=== PATIENT | female | born 1975 | race African-American/Black ===

== ENCOUNTER 2016-09-27 08:18 | Inpatient (IN) | payer BC ==
[2016-09-27 09:22] VITALS: BMI 23.6
--- NOTE | 2016-09-27 11:40 | HP ---
CIWA Score - CIWA Score Nausea/Vomitin-No Nausea/No Vomiting Muscle Tremors: 4-Moderate,w/Arms Extend Anxiety: 4-Mod. Anxious/Guarded Agitation: 4-Moderately Restless Paroxysmal Sweats: 3 Orientation: 0-Oriented Tacttile Disturbances: 0-None Auditory Disturbances: 0-None Visual Disturbances: 0-None Headache: 0-None Present CIWA-Ar Total Score: 15 Admission ROS BHS - HPI Chief Complaint: I need to stop drinking. Allergies/Adverse Reactions: Allergies Allergy/AdvReac Type Severity Reaction Status Date / Time No Known Allergies Allergy Verified 09/27/16 09:36 History of Present Illness: pt is a 40yr old female with a history of alcohol dependence seeking detox for treatment. Exam Limitations: No Limitations - Ebola screening Have you traveled outside of the country in the last 21 days: No Have you had contact with anyone from an Ebola affected area: No Have you been sick,other than usual withdrawal symptoms: No Do you have a fever: No - Review of Systems Constitutional: Chills, Diaphoresis, Loss of Appetite, Night Sweats, Changes in sleep, Unintentional Wgt. Loss EENT: reports: No Symptoms Reported Respiratory: reports: No Symptoms reported Cardiac: reports: Lightheadedness GI: reports: Nausea, Poor Appetite, Poor Fluid Intake : reports: No Symptoms Reported Musculoskeletal: reports: Back Pain, Joint Pain, Muscle Pain Integumentary: reports: Flushing, Sweating Endocrine: reports: Excessive Sweating, Flushing, Intolerance to Cold, Intolerance to Heat Hematology: reports: Anemia (iron deficiency anemia last IV infusion 04/2016. currently talking iron sulfate once daily) Psychiatric: reports: Judgement Intact, Orientated x3, Agitated, Anxious Patient History - Patient Medical History Hx Anemia: Yes (iron deficiency anemia) Hx Asthma: No Hx Chronic Obstructive Pulmonary Disease (COPD): No Hx Cancer: No Hx Cardiac Disorders: No Hx Congestive Heart Failure: No Hx Hypertension: No Hx Hypercholesterolemia: No Hx Pacemaker: No HX Cerebrovascular Accident: No Hx Seizures: No Hx Dementia: No Hx Diabetes: No Hx Gastrointestinal Disorders: Yes (acid reflux) Hx Liver Disease: No Hx Genitourinary Disorders: No Hx Sexually Transmitted Disorders: No Hx Renal Disease (ESRD): No Hx Thyroid Disease: No Hx Human Immunodeficiency Virus (HIV): No Hx Hepatitis C: No Hx Depression: Yes Hx Suicide Attempt: No (denies) Hx Bipolar Disorder: No Hx Schizophrenia: No - Patient Surgical History Past Surgical History: No Hx Neurologic Surgery: No Hx Cataract Extraction: No Hx Cardiac Surgery: No Hx Lung Surgery: No Hx Breast Surgery: No Hx Breast Biopsy: No Hx Abdominal Surgery: No Hx Appendectomy: No Hx Cholecystectomy: No Hx Genitourinary Surgery: No Hx Section: No Hx Orthopedic Surgery: No Anesthesia Reaction: No - PPD History Previous Implant?: Yes Documented Results: Negative w/o proof Implanted On Prior R Admission?: No PPD to be Administered?: Yes - Reproductive History Patient is a Female of Child Bearing Age (11 -55 yrs old): Yes Last Menstrual Period: 09/16/16 Patient : No - Smoking Cessation Smoking history: Former smoker Have you smoked in the past 12 months: No If you are a former smoker, when did you quit?: at age 31 Hx Chewing Tobacco Use: No Initiated information on smoking cessation: No - Substance & Tx. History Hx Alcohol Use: Yes Substance Use Type: Alcohol Hx Substance Use Treatment: Yes - Substances Abused Alcohol-vodka Route: Oral Frequency: Daily Amount used: 2 pts. Age of first use: 22 Date of Last Use: 09/26/16 Family Disease History - Family Disease History Family History: Denies Admission Physical Exam BHS - Vital Signs Vital Signs: Vital Signs - 24 hr 09/27/16 09:14 Temperature 98.3 F Pulse Rate 116 H Respiratory 20 Rate Blood Pressure 143/71 - Physical General Appearance: Yes: Appropriately Dressed, Moderate Distress, Tremorous, Irritable, Sweating, Anxious HEENTM: Yes: Normal Voice, Nasal Congestion Respiratory: Yes: Lungs Clear, Normal Breath Sounds, No Respiratory Distress Neck: Yes: No masses,lesions,Nodules Breast: Yes: Within Normal Limits Cardiology: Yes: Regular Rhythm, Regular Rate, S1, S2, Tachycardia Abdominal: Yes: Normal Bowel Sounds, Non Tender, Flat, Soft Genitourinary: Yes: Within Normal Limits Back: Yes: Normal Inspection Musculoskeletal: Yes: full range of Motion Extremities: Yes: Tremors Neurological: Yes: Fully Oriented, Alert, Normal Response Integumentary: Yes: Diaphoresis Lymphatic: Yes: Within Normal Limits - Diagnostic (1) Alcohol dependence with uncomplicated withdrawal Current Visit: Yes Status: Chronic (2) Iron deficiency anemia Current Visit: Yes Status: Chronic Qualifiers: Iron deficiency anemia type: unspecified iron deficiency Qualified Code(s): D50.9 - Iron deficiency anemia, unspecified (3) GERD (gastroesophageal reflux disease) Current Visit: Yes Status: Chronic Qualifiers: Esophagitis presence: without esophagitis Qualified Code(s): K21.9 - Gastro-esophageal reflux disease without esophagitis Cleared for Admission BHS - Detox or Rehab S Level of Care: Medically Managed Detox Regimen/Protocol: Librium S Breath Alcohol Content Breath Alcohol Content: 0.164 Urine Pregancy Test - Result Urine Test Results: Negative- NO Line Present Urine Drug Screen - Results Drug Screen Negative: Yes
[2016-09-27] MEDS ORDERED: MAGNESIUM CITRATE 300 ML BOTTLE PO PRN (11:53)
[2016-09-27] MEDS ORDERED: ACETAMINOPHEN 325 MG TABLET (FP) PO PRN (11:53)
[2016-09-27] MEDS ORDERED: diphenhydrAMINE HCL 50 MG CAPSULE PO PRN (11:53)
[2016-09-27] MEDS ORDERED: P-EPHED 60MG/TRIPROLIDI 2.5MG TABLET PO PRN (11:53)
[2016-09-27] MEDS ORDERED: chlordiazePOXIDE HCL 25 MG CAPSULE PO PRN (11:53)
[2016-09-27] MEDS ORDERED: MAG HYDROX/AL HYDROX/SIMETH 30 ML UNIT-DOSE CUP PO PRN (11:53)
[2016-09-27] MEDS ORDERED: MAGNESIUM HYDROX 2400MG/30ML ORAL SUSPENSION 30 ML CUP PO PRN (11:53)
[2016-09-27] MEDS ORDERED: IBUPROFEN 400 MG TABLET (FP) PO PRN (11:53)
[2016-09-27] MEDS ORDERED: LOPERAMIDE HCL 2 MG CAPSULE PO PRN (11:53)
[2016-09-27] MEDS ORDERED: guaiFENesin/D-METHORPHAN HB 10 ML UNIT-DOSE CUPS PO PRN (11:53)
[2016-09-27] MEDS ORDERED: MENTHOL/PHENOL 1 EACH UD MM PRN (11:53)
[2016-09-27] MEDS ORDERED: TRIMETHOBENZAMIDE HCL 300 MG CAPSULE PO PRN (12:04)
[2016-09-27] MEDS ORDERED: cloNIDine HCL 0.1 MG TABLET PO ONE (12:15)
[2016-09-27] MEDS ORDERED: chlordiazePOXIDE HCL 25 MG CAPSULE PO ONE (12:15)
[2016-09-27 14:38] LABS: HIV 1 & 2 AB NEGATIVE; HIV 1 AGp24 NEGATIVE
--- NOTE | 2016-09-27 16:30 | CONSULT ---
[facility] Psychiatric Consult - Data Date of interview: 09/27/16 Admission source: [facility] Identifying data: First admission to [facility] for this 40 y/o AA female seeking detox treatment for alcohol dependence.Patient is single without children,domiciled and currently employed ([employer]act[employer]). Substance Abuse History: - Smoking Cessation. Smoking history: Former smoker. Have you smoked in the past 12 months: No. If you are a former smoker, when did you quit?: at age 31. Hx Chewing Tobacco Use: No. Initiated information on smoking cessation: No. - Substance & Tx. History. Hx Alcohol Use: Yes. Substance Use Type: Alcohol. Hx Substance Use Treatment: Yes. - Substances Abused. Alcohol-vodka. Route: Oral. Frequency: Daily. Amount used: 2 pts. Age of first use: 22. Date of Last Use: 09/26/16. Confirmed by patient. Medical History: Uterine fibroids,GERD and anemia. Psychiatric History: One psychiatric hopitalization,in February 2016,at [facility] [place].Diagnosed with MDD/Anxiety Disorder.Prescribed prozac 20 mg/ day + trazodone 50 mg/hs.Ms Field reports that she stopped OPD care a month ago because of " irreconciliable " conflicts (to be understood as absence of a therapeutic alliance) with her psychiatrists.Patient declines to resume prozac but she consents to take trazodone (that she finds effective in the management of her insomnia).No history of suicide attempts. Physical/Sexual Abuse/Trauma History: Patient denies. Additional Comment: Drug Screen Negative: Yes .Report is noted. Mental Status Exam - Mental Status Exam Alert and Oriented to: Time, Place, Person Cognitive Function: Good Patient Appearance: Well Groomed Mood: Withdrawn, Anxious, Apprehensive, Hopeful Affect: Constricted Patient Behavior: Fatigued, Appropriate, Cooperative Speech Pattern: Clear, Appropriate Voice Loudness: Normal Thought Process: Goal Oriented Thought Disorder: Not Present Hallucinations: Denies Suicidal Ideation: Denies Homicidal Ideation: Denies Insight/Judgement: Fair Sleep: Poorly, Difficulty falling asleep Appetite: Good Muscle strength/Tone: Normal Gait/Station: Normal Psychiatric Findings - Problem List ([place] 1, 2,3) (1) Alcohol dependence with uncomplicated withdrawal Current Visit: Yes Status: Acute (2) Alcohol-induced mood disorder Current Visit: Yes Status: Acute (3) Depressive disorder Current Visit: Yes Status: Chronic (4) GERD (gastroesophageal reflux disease) Current Visit: Yes Status: Chronic Qualifiers: Esophagitis presence: without esophagitis Qualified Code(s): K21.9 - Gastro-esophageal reflux disease without esophagitis (5) Iron deficiency anemia Current Visit: Yes Status: Chronic Qualifiers: Iron deficiency anemia type: unspecified iron deficiency Qualified Code(s): D50.9 - Iron deficiency anemia, unspecified (6) Insomnia Current Visit: Yes Status: Acute - Initial Treatment Plan Initial Treatment Plan: Psychoeducation.Detoxification.Medications : trazodone 50 mg po hs.Side effects/benefits discussed with the patient.She agrees with this careplan.Observation.
[2016-09-27 16:51] LABS: URINE APPEARANCE CLEAR; URINE BILIRUBIN NEGATIVE (NEGATIVE); URINE COLOR LTYELLOW; URINE GLUCOSE (UA) NEGATIVE (NEGATIVE); URINE KETONE 2+ (NEGATIVE); URINE LEUK ESTERASE NEGATIVE (NEGATIVE); URINE NITRITE NEGATIVE (NEGATIVE); URINE PROTEIN NEGATIVE (NEGATIVE); URINE UROBILINOGEN NEGATIVE E.U./dl (0.2-1.0)
[2016-09-27] MEDS: chlordiazePOXIDE HCL 25 MG CAPSULE PO SCH ×2 (17:30→22:36)
[2016-09-27 17:47] LABS: URINE BLOOD 2+ (NEGATIVE)
[2016-09-27 18:02] LABS: URINE MUCUS RARE; URINE WBC 2 /hpf (3-5)
[2016-09-27] MEDS: hydrOXYzine PAMOATE 50 MG CAPSULE (FP) PO PRN (18:23)
[2016-09-27] MEDS: THIAMINE HCL 100 MG TABLET (FP) PO SCH (22:36)
[2016-09-27] MEDS: traZODone HCL 50 MG TABLET (FP) PO SCH (22:36)
[2016-09-28] MEDS: chlordiazePOXIDE HCL 25 MG CAPSULE PO SCH ×4 (05:45→22:52)
[2016-09-28 10:25] LABS: MCH 28.8 pg (25.7-33.7); MCHC 33.1 g/dl (32.0-36.0); MEAN CELL VOLUME 86.9 fl (80-96); MEAN PLT VOLUME 10.2 fl (7.5-11.1); PLATELET COUNT 208 K/MM3 (134-434); RDW 19.8 % (11.6-15.6); WHITE BLOOD COUNT 4.7 K/mm3 (4.0-10.0)
[2016-09-28] MEDS: PRENATAL VITAMINS W/ FOLIC ACID TABLET (FP) PO SCH (11:02)
[2016-09-28 11:12] LABS: ALBUMIN 4.4 g/dl (3.4-5.0); ALK PHOS 58 U/L (45-117); ANION GAP 20 (8-16); BILIRUBIN,TOTAL 0.6 mg/dL (0.2-1.0); CALCIUM 7.9 mg/dL (8.5-10.1); CO2 21 mmol/L (21-32); CREATININE 0.9 mg/dL (0.55-1.02); GLUCOSE,RANDOM 105 mg/dL (74-106); SGOT/AST 388 U/L (15-37); SGPT/ALT 281 U/L (12-78)
--- NOTE | 2016-09-28 12:30 | EKG ---
Test Reason : Blood Pressure : / mmHG Vent. Rate : 097 BPM Atrial Rate : 097 BPM P-R Int : 172 ms QRS Dur : 094 ms QT Int : 398 ms P-R-T Axes : 073 077 079 degrees QTc Int : 505 ms NORMAL SINUS RHYTHM POSSIBLE LEFT ATRIAL ENLARGEMENT PROLONGED QT ABNORMAL ECG NO PREVIOUS ECGS AVAILABLE Confirmed by TAHIR JACOBSON, WILLIS ([id number]) on 09/28/2016 12:30:27 PM Referred By: Som Cohen Confirmed By:WILLIS HARO MD
--- NOTE | 2016-09-28 13:59 | PN ---
S CIWA - CIWA Score Nausea/Vomitin Muscle Tremors: 3 Anxiety: 3 Agitation: 3 Paroxysmal Sweats: 1-Minimal Palms Moist Orientation: 0-Oriented Tacttile Disturbances: 1-Very Mild Itch/Numbness Auditory Disturbances: 1-Very Mild Visual Disturbances: 1-Very Mild Sensitivity Headache: 2-Mild CIWA-Ar Total Score: 18 BHS Progress Note (SOAP) Subjective: ALERT,IRRITABLE,ANXIOUS,INTERRUPTED SLEEP,TREMOR Objective: 09/28/16 13:56 Vital Signs Temperature 98.6 F 09/28/16 10:02 Pulse Rate 97 H 09/28/16 10:02 Respiratory Rate 20 09/28/16 10:02 Blood Pressure 113/81 09/28/16 10:02 O2 Sat by Pulse Oximetry (%) EKG NSR,PROLONG QT Laboratory Last Values WBC 4.7 K/mm3 (4.0-10.0) 09/28/16 06:00 RBC 3.94 M/mm3 (3.60-5.2) 09/28/16 06:00 Hgb 11.4 GM/dL (10.7-15.3) 09/28/16 06:00 Hct 34.3 % (32.4-45.2) 09/28/16 06:00 MCV 86.9 fl (80-96) 09/28/16 06:00 MCHC 33.1 g/dl (32.0-36.0) 09/28/16 06:00 RDW 19.8 % (11.6-15.6) H 09/28/16 06:00 Plt Count 208 K/MM3 (134-434) 09/28/16 06:00 MPV 10.2 fl (7.5-11.1) 09/28/16 06:00 Sodium 137 mmol/L (136-145) 09/28/16 06:00 Potassium 4.0 mmol/L (3.5-5.1) 09/28/16 06:00 Chloride 96 mmol/L (98-107) L 09/28/16 06:00 Carbon Dioxide 21 mmol/L (21-32) 09/28/16 06:00 Anion Gap 20 (8-16) H 09/28/16 06:00 BUN 7 mg/dL (7-18) 09/28/16 06:00 Creatinine 0.9 mg/dL (0.55-1.02) 09/28/16 06:00 Creat Clearance w eGFR > 60 (>60) 09/28/16 06:00 Random Glucose 105 mg/dL (74-106) 09/28/16 06:00 Calcium 7.9 mg/dL (8.5-10.1) L 09/28/16 06:00 Total Bilirubin 0.6 mg/dL (0.2-1.0) 09/28/16 06:00 AST 388 U/L (15-37) H 09/28/16 06:00 ALT 281 U/L (12-78) H 09/28/16 06:00 Alkaline Phosphatase 58 U/L (45-117) 09/28/16 06:00 Total Protein 8.0 g/dl (6.4-8.2) 09/28/16 06:00 Albumin 4.4 g/dl (3.4-5.0) 09/28/16 06:00 Urine Color Ltyellow 09/27/16 13:00 Urine Appearance Clear 09/27/16 13:00 Urine pH 5.0 (5.0-8.0) 09/27/16 13:00 Ur Specific [place] 1.010 (1.001-1.035) 09/27/16 13:00 Urine Protein Negative (NEGATIVE) 09/27/16 13:00 Urine Glucose (UA) Negative (NEGATIVE) 09/27/16 13:00 Urine Ketones 2+ (NEGATIVE) H 09/27/16 13:00 Urine Blood 2+ (NEGATIVE) H 09/27/16 13:00 Urine Nitrite Negative (NEGATIVE) 09/27/16 13:00 Urine Bilirubin Negative (NEGATIVE) 09/27/16 13:00 Urine Urobilinogen Negative E.U./dl (0.2-1.0) 09/27/16 13:00 Ur Leukocyte Esterase Negative (NEGATIVE) 09/27/16 13:00 Urine RBC None /hpf (0-3) 09/27/16 13:00 Urine WBC 2 /hpf (3-5) 09/27/16 13:00 Ur Epithelial Cells Rare /hpf (FEW) 09/27/16 13:00 Urine Mucus Rare 09/27/16 13:00 HIV 1&2 Antibody Screen Negative 09/27/16 10:25 HIV P24 Antigen Negative 09/27/16 10:25 Assessment: 09/28/16 13:57 WITHDRAWAL SYMPTOM Plan: CONTINUE DETOX,D/C TYLENOL,REPEAT CMP,INR I AM FOR TRANSAMINASEMIA
[2016-09-28] MEDS: HYDROCORTISONE 1% TOPICAL CREAM 30 GM TUBE TP SCH (22:52)
[2016-09-28] MEDS: traZODone HCL 50 MG TABLET (FP) PO SCH (22:52)
[2016-09-28] MEDS: THIAMINE HCL 100 MG TABLET (FP) PO SCH (22:52)
[2016-09-29] MEDS: chlordiazePOXIDE HCL 25 MG CAPSULE PO SCH ×2 (04:38→10:59)
[2016-09-29 10:45] LABS: INR 0.97 (0.82-1.09); PROTHROMBIN TIME (PATIENT) 10.7 SEC (9.98-11.88)
[2016-09-29 10:52] LABS: ALK PHOS 61 U/L (45-117); ANION GAP 10 (8-16); BILIRUBIN,TOTAL 0.9 mg/dL (0.2-1.0); CALCIUM 8.6 mg/dL (8.5-10.1); CO2 29 mmol/L (21-32); CREATININE 0.8 mg/dL (0.55-1.02); GLUCOSE,RANDOM 85 mg/dL (74-106); SGOT/AST 314 U/L (15-37); SGPT/ALT 222 U/L (12-78)
[2016-09-29] MEDS: HYDROCORTISONE 1% TOPICAL CREAM 30 GM TUBE TP SCH ×2 (10:59→22:32)
[2016-09-29] MEDS: PRENATAL VITAMINS W/ FOLIC ACID TABLET (FP) PO SCH (10:59)
[2016-09-29] MEDS ORDERED: PANTOPRAZOLE 40 MG TABLET (FP) PO ONE ×2 (12:30→14:45)
--- NOTE | 2016-09-29 13:29 | PN ---
S CIWA - CIWA Score Nausea/Vomitin Muscle Tremors: 3 Anxiety: 3 Agitation: 2 Paroxysmal Sweats: 1-Minimal Palms Moist Orientation: 0-Oriented Tacttile Disturbances: 1-Very Mild Itch/Numbness Auditory Disturbances: 1-Very Mild Visual Disturbances: 1-Very Mild Sensitivity Headache: 2-Mild CIWA-Ar Total Score: 17 BHS Progress Note (SOAP) Subjective: ALERT,IRRITABLE,ANXIOUS,INTERRUPTED SLEEP,NAUSEA,POOR APPETITE Objective: 09/29/16 13:20 Vital Signs Temperature 98.4 F 09/29/16 10:53 Pulse Rate 97 H 09/29/16 10:53 Respiratory Rate 18 09/29/16 10:53 Blood Pressure 121/80 09/29/16 10:53 O2 Sat by Pulse Oximetry (%) Laboratory Last Values WBC 4.7 K/mm3 (4.0-10.0) 09/28/16 06:00 RBC 3.94 M/mm3 (3.60-5.2) 09/28/16 06:00 Hgb 11.4 GM/dL (10.7-15.3) 09/28/16 06:00 Hct 34.3 % (32.4-45.2) 09/28/16 06:00 MCV 86.9 fl (80-96) 09/28/16 06:00 MCHC 33.1 g/dl (32.0-36.0) 09/28/16 06:00 RDW 19.8 % (11.6-15.6) H 09/28/16 06:00 Plt Count 208 K/MM3 (134-434) 09/28/16 06:00 MPV 10.2 fl (7.5-11.1) 09/28/16 06:00 INR 0.97 (0.82-1.09) 09/29/16 07:45 Sodium 135 mmol/L (136-145) L 09/29/16 07:45 Potassium 3.6 mmol/L (3.5-5.1) 09/29/16 07:45 Chloride 96 mmol/L (98-107) L 09/29/16 07:45 Carbon Dioxide 29 mmol/L (21-32) D 09/29/16 07:45 Anion Gap 10 (8-16) 09/29/16 07:45 BUN 3 mg/dL (7-18) L D 09/29/16 07:45 Creatinine 0.8 mg/dL (0.55-1.02) 09/29/16 07:45 Creat Clearance w eGFR > 60 (>60) 09/29/16 07:45 Random Glucose 85 mg/dL (74-106) 09/29/16 07:45 Calcium 8.6 mg/dL (8.5-10.1) 09/29/16 07:45 Total Bilirubin 0.9 mg/dL (0.2-1.0) D 09/29/16 07:45 AST 314 U/L (15-37) H 09/29/16 07:45 ALT 222 U/L (12-78) H D 09/29/16 07:45 Alkaline Phosphatase 61 U/L (45-117) 09/29/16 07:45 Total Protein 7.0 g/dl (6.4-8.2) 09/29/16 07:45 Albumin 4.0 g/dl (3.4-5.0) 09/29/16 07:45 Urine Color Ltyellow 09/27/16 13:00 Urine Appearance Clear 09/27/16 13:00 Urine pH 5.0 (5.0-8.0) 09/27/16 13:00 Ur Specific [place] 1.010 (1.001-1.035) 09/27/16 13:00 Urine Protein Negative (NEGATIVE) 09/27/16 13:00 Urine Glucose (UA) Negative (NEGATIVE) 09/27/16 13:00 Urine Ketones 2+ (NEGATIVE) H 09/27/16 13:00 Urine Blood 2+ (NEGATIVE) H 09/27/16 13:00 Urine Nitrite Negative (NEGATIVE) 09/27/16 13:00 Urine Bilirubin Negative (NEGATIVE) 09/27/16 13:00 Urine Urobilinogen Negative E.U./dl (0.2-1.0) 09/27/16 13:00 Ur Leukocyte Esterase Negative (NEGATIVE) 09/27/16 13:00 Urine RBC None /hpf (0-3) 09/27/16 13:00 Urine WBC 2 /hpf (3-5) 09/27/16 13:00 Ur Epithelial Cells Rare /hpf (FEW) 09/27/16 13:00 Urine Mucus Rare 09/27/16 13:00 RPR Titer Nonreactive (NONREACTIVE) 09/28/16 06:00 HIV 1&2 Antibody Screen Negative 09/27/16 10:25 HIV P24 Antigen Negative 09/27/16 10:25 Assessment: 09/29/16 13:22 WITHDRAWAL SYMPTOM Plan: CONTINUE DETOX,ENSURE PLUS 12O MLS PO BID,PROTONIX 40 MGS PO DAILY
[2016-09-29] MEDS: chlordiazePOXIDE 5 MG CAPSULE PO SCH ×2 (17:17→22:32)
[2016-09-29] MEDS: traZODone HCL 50 MG TABLET (FP) PO SCH (22:32)
[2016-09-29] MEDS: THIAMINE HCL 100 MG TABLET (FP) PO SCH (22:32)
[2016-09-30] MEDS: chlordiazePOXIDE 5 MG CAPSULE PO SCH ×2 (05:54→10:30)
[2016-09-30] MEDS ORDERED: PANTOPRAZOLE SOD 40 MG SUSPENSION PACKET PO SCH (10:00)
[2016-09-30] MEDS: HYDROCORTISONE 1% TOPICAL CREAM 30 GM TUBE TP SCH ×2 (10:29→22:52)
[2016-09-30] MEDS: PRENATAL VITAMINS W/ FOLIC ACID TABLET (FP) PO SCH (10:30)
--- NOTE | 2016-09-30 10:54 | PN ---
BHS Progress Note (SOAP) Subjective: agitation sweats Objective: 09/30/16 10:53 Vital Signs Temperature 97.5 F L 09/30/16 06:00 Pulse Rate 62 09/30/16 06:00 Respiratory Rate 18 09/30/16 06:00 Blood Pressure 106/68 09/30/16 06:00 O2 Sat by Pulse Oximetry (%) awake/alert ambulating no acute distress Assessment: 09/30/16 10:53 withdrawal sx Plan: continue detox increase fluids d/c in am
[2016-09-30] MEDS ORDERED: cloNIDine HCL 0.1 MG TABLET PO ONE (14:00)
[2016-09-30] MEDS: hydrOXYzine PAMOATE 50 MG CAPSULE (FP) PO PRN (14:29)
[2016-09-30] MEDS: chlordiazePOXIDE HCL 10 MG CAPSULE PO SCH ×2 (17:24→22:51)
[2016-09-30] MEDS: THIAMINE HCL 100 MG TABLET (FP) PO SCH (22:51)
[2016-09-30] MEDS: traZODone HCL 50 MG TABLET (FP) PO SCH (22:52)
[2016-10-01] MEDS: chlordiazePOXIDE HCL 10 MG CAPSULE PO SCH (06:00)
--- NOTE | 2016-10-01 09:19 | DS ---
[facility] Detox Discharge Summary Admission Date: 09/27/16 Discharge Date: 10/01/16 - History Present History: Alcohol Dependence - Physical Exam Results Vital Signs: Vital Signs Temperature 98.2 F 10/01/16 06:34 Pulse Rate 74 10/01/16 06:34 Respiratory Rate 18 10/01/16 06:34 Blood Pressure 98/65 10/01/16 06:34 O2 Sat by Pulse Oximetry (%) - Treatment Hospital Course: Detox Protocol Followed, Detoxed Safely, Responded well, Discharged Condition Good - Medication Discharge Medications: Ambulatory Orders Trazodone HCl [Desyrel -] 50 mg PO HS #30 tablet 09/27/16 - Diagnosis (1) Alcohol dependence with uncomplicated withdrawal Current Visit: Yes Status: Chronic (2) Insomnia Current Visit: Yes Status: Acute (3) Depressive disorder Current Visit: Yes Status: Chronic (4) GERD (gastroesophageal reflux disease) Current Visit: Yes Status: Chronic Qualifiers: Esophagitis presence: without esophagitis Qualified Code(s): K21.9 - Gastro-esophageal reflux disease without esophagitis (5) Iron deficiency anemia Current Visit: Yes Status: Chronic Qualifiers: Iron deficiency anemia type: unspecified iron deficiency Qualified Code(s): D50.9 - Iron deficiency anemia, unspecified - AMA Did Patient Leave Against Medical Advice: No
[2016-10-01 10:56] VITALS: BP 124/75; PULSE 115; TEMP 98.1
== END 2016-10-01 09:39 | disposition home or self-care (01) | DRG 775 ==
LOC: YASAS 08:18 → Y6N 10:44
PROVIDERS: ADMIT Internal Medicine; ATTEND Internal Medicine
PROC: HZ2ZZZZ Detoxification Services for Substance Abuse Treatment (ICD-10-PCS; principal; 2016-10-01)
DX: F10.230 Alcohol dependence with withdrawal, uncomplicated (principal); F32.9 Major depressive disorder, single episode, unspecified; F10.24 Alcohol dependence with alcohol-induced mood disorder; G47.00 Insomnia, unspecified; K21.9 Gastro-esophageal reflux disease without esophagitis; D50.9 Iron deficiency anemia, unspecified
CPT/HCPCS: 36415; 80053; 81003; 81015; 85027; 85610; 86593; 87389; 93005; 93010